=== PATIENT | female | born 1950 | race Caucasian/White ===

== ENCOUNTER 2018-12-23 07:40 | Day surgery (SDC) | payer MEDICARE ==
--- NOTE | 2018-12-16 11:28 | HP ---
AMENDED REPORT NOW INCLUDES DESIGNATED COSIGNER PREOPERATIVE HISTORY AND PHYSICAL: DATE OF ADMISSION: 12/23/18 [facility] ATTENDING PHYSICIAN: Dr. Edie Alegria * (DICTATED BY LOURDES MANE) CHIEF COMPLAINT: Right thumb pain. HISTORY OF PRESENT ILLNESS: The patient is here for followup with Dr. Alegria today for her CMC arthritis. She had previously undergone a left CMC arthroplasty and has done very well with that. She has had over 1 year or thumb pain and the last month has been excruciatingly painful for her. She has elected to proceed with CMC arthroplasty with Dr. Alegria, 12/23/18. She is right hand dominant. PAST MEDICAL HISTORY: Significant for osteoporosis, chronic back pain, hypertension, GERD, high cholesterol, depression, polymyalgia rheumatica, seasonal bronchitis, macular degeneration. PAST SURGICAL HISTORY: Left rotator cuff surgery, left CMC arthroplasty, right long and ring trigger finger releases, bunion surgery on both feet, tubal ligation, tonsillectomy, lumbar decompression, plantar wart surgery both feet, I and D left knee infected prepatellar bursa. MEDICATIONS: 1. Calcium 600 mg twice daily. 2. Vitamin D3 500 units 1 by mouth daily. 3. Amitriptyline 25 mg 3 tablets q.h.s. 4. Lisinopril 40 mg daily. 5. Omeprazole 20 mg daily. 6. Lipitor 80 mg q.h.s. 7. Fluoxetine 40 mg 1 p.o. daily. 8. Prednisone 5 mg 1 tab alternating with half tab p.o. daily. 9. Ventolin inhaler and Symbicort inhaler as needed for bronchitis. 10. Multivitamin daily. 11. Tylenol extra strength 1 to 2 tabs p.o. q.6 hours p.r.n. 12. Cyclobenzaprine 10 mg p.o. q.h.s. 13. Ibuprofen 600 mg 3 times daily as needed. ALLERGIES: PENICILLIN, she does not remember the reaction. SOCIAL HISTORY: The patient lives alone. She quit smoking cigarettes 46 years ago. She denies use of alcohol or illicit drugs. She works at [employer] with clients with a history of traumatic brain injury. PHYSICAL EXAMINATION GENERAL: She is alert and oriented x3, in no acute distress. Pleasant and cooperative. Appropriate mood and affect. VITAL SIGNS: Height 66.50 inches, weight 165. Pulse 100, BP 116/76, temperature 97.2. HEENT: PERRLA. EOMI. LUNGS: Clear to auscultation without wheeze. HEART: Regular rate and rhythm. No murmur auscultated. ABDOMEN: Nontender, nontender. Normoactive bowel sounds x4 quadrants. EXTREMITIES: Upper extremities, the right CMC area is swollen and tender at the CMC joint. She has a positive grind test. She has decreased motion of the thumb secondary to pain. Her circulation and sensation are intact. She has a 2 + radial pulse. IMPRESSION: Advanced CMC arthritis on the right. PLAN: The patient has elected to proceed with right CMC arthroplasty with Dr. Alegria on 12/23/18. Risks and benefits of the procedure have fully been discussed by Dr. Alegria at today's office visit and she elected to proceed. She will follow up in roughly 10 days postoperatively. LOURDES MANE [id number]/[facility] #: [id number] ALEX
[~2018-12-23 07:40] MED LIST: Buffered Lidocaine 1% SYRIN* 1 ML/SYRINGE INTRADERM ONE; Dexamethasone IV* 4 MG/ML 1 ML (4 MG) IV SLOW PU ONE; Lactated Ringers 1000 ML Bag* 1,000 ML IV SCH
[2018-12-23] MEDS ORDERED: Dexamethasone IV* 4 MG/ML 1 ML (4 MG) ONE (07:54)
[2018-12-23] MEDS ORDERED: Clindamycin 900 MG IVPREMIX(* 900 MG/50 ML SDV IV ONE (07:54)
[2018-12-23] MEDS ORDERED: Ondansetron INJ* 2 MG/ML VIAL ONE (08:49)
[2018-12-23] MEDS ORDERED: Midazolam* 1 MG/ML 5 ML VIAL (5 MG) ONE (08:49)
[2018-12-23] MEDS ORDERED: fentaNYL* 50 MCG/ML 2 ML VIAL (100 MCG VIAL) ONE (08:49)
[2018-12-23] MEDS ORDERED: Propofol* 10 MG/ML 20 ML BTL ONE (08:49)
[2018-12-23] MEDS ORDERED: Ketorolac INJ* 30 MG/ML 1 ML VIAL ONE (08:49)
[2018-12-23] MEDS ORDERED: Bupivacaine 0.5% SDV PF* 30ML VIAL ONE (08:52)
[2018-12-23] MEDS ORDERED: Lidocaine 0.5%* 50 ML SDV ONE (08:54)
[2018-12-23] MEDS ORDERED: Sodium Bicarbonate 8.4% VIAL* 10 ML VIAL IV ONE (08:54)
[2018-12-23 10:58] VITALS: BP 122/79
--- NOTE | 2018-12-23 12:08 | OP ---
DATE OF OPERATION: 12/23/18 [facility] DATE OF : 46 SURGEON: Edie Alegria MD. CONTACT CLERK: LOURDES Ko. ANESTHESIA: IV regional. PRE-OP DIAGNOSIS: Right thumb carpometacarpal arthritis. POST-OP DIAGNOSIS: Right thumb carpometacarpal arthritis. OPERATIVE PROCEDURE: Right thumb carpometacarpal arthroplasty. ESTIMATED BLOOD LOSS: Zero. TOURNIQUET TIME: About 40 minutes. INDICATION FOR PROCEDURE: Mariah is a 68-year-old female who has painful arthritis at the base of her right thumb. She has failed conservative treatment and presents now for a right thumb CMC arthroplasty. DESCRIPTION OF PROCEDURE: The patient was brought to the operating room and was given a sedation anesthetic and an IV regional anesthetic with a tourniquet around her right upper arm. The skin of her right upper extremity was prepped and draped in the usual sterile fashion. An S-shaped incision made, centered at the thumb CMC joint. We dissected bluntly through the subcutaneous tissue. Branches of the radial sensory nerve and the radial artery were located and then retracted by the surgical clinical reviewer, Fely Moncada. A distally based U- shaped flap was created at the thumb CMC joint capsule and that was subperiosteally dissected off of the trapezium. Trapezium was then removed in its entirety and piecemeal fashion. The wound was irrigated and the CMC joint capsule was secured to the FCR tendon in the base of the wound. This gave a very nice abduction position to the metacarpal and 30 degrees of MP flexion. The skin edges were reapproximated with 4-0 nylon suture. The wound was dressed with Xeroform, 4x4, Webril, and a thumb spica splint. The patient tolerated the procedure well and was brought to the recovery room in good condition. [id number]/[facility] [place] #: [id number] [facility]
== END 2018-12-23 09:40 | disposition home or self-care (01) ==
LOC: OREAST 07:40
PROVIDERS: ATTEND Orthopaedic Surgery
DX: M18.11 Unilateral primary osteoarthritis of first carpometacarpal joint, right hand (principal); M81.0 Age-related osteoporosis without current pathological fracture; I10 Essential (primary) hypertension; K21.9 Gastro-esophageal reflux disease without esophagitis; E78.00 Pure hypercholesterolemia, unspecified; M35.3 Polymyalgia rheumatica; F32.9 Major depressive disorder, single episode, unspecified
CPT/HCPCS: 88304; 88311; J1100; J1885; J2250; J2405; J2704; J3010; J3490

== ENCOUNTER 2023-10-14 05:42 | Inpatient (IN) ==
[~2023-10-14 05:42] MED LIST changes: -Buffered Lidocaine 1% SYRIN* 1 ML/SYRINGE INTRADERM ONE; -Dexamethasone IV* 4 MG/ML 1 ML (4 MG) IV SLOW PU ONE; -Lactated Ringers 1000 ML Bag* 1,000 ML IV SCH; +NS 0.45% 1000 ml BAG 1,000 ML IV SCH; +Naloxone 0.4 mg VIAL 0.4 mg/ml 1 ml VIAL IV PRN; +Ondansetron 4 mg VIAL 2 MG/ML 2 ml VIAL IV PRN; +fentaNYL 100 mcg/2 ml 50 MCG/ML VIAL IV PRN
[2023-10-14] MEDS ORDERED: Famotidine IV 10 MG/ML 2 ml VIAL (20 mg) ONE (06:17)
[2023-10-14] MEDS ORDERED: Clindamycin 900 MG/50 **NS BAG 900 MG/50 ML BAG ONE (06:17)
[2023-10-14 06:28] LABS: Rapid COVID-19 Molecular Undetected (Undetected)
[2023-10-14] MEDS ORDERED: Midazolam 5 mg/5 ml VIAL 1 mg/ml 5 ml VIAL (5 mg) ONE (06:41)
[2023-10-14] MEDS ORDERED: fentaNYL 100 mcg/2 ml 50 MCG/ML VIAL ONE ×3 (06:41→11:22)
[2023-10-14] MEDS ORDERED: ROPIVACAINE 5 MG/ML 30 ML BTL (0.5%) ONE (06:42)
[2023-10-14] MEDS: Famotidine IV 10 MG/ML 2 ml VIAL (20 mg) IV ONE (06:43)
[2023-10-14] MEDS: Lactated Ringers 1000 ml BAG 1,000 ML IV SCH ×2 (06:43→14:25)
[2023-10-14] MEDS: Levalbuterol 0.63MG/3ML NEB UNIT OF USE INH ONE (06:44)
[2023-10-14] MEDS ORDERED: Levalbuterol 0.63MG/3ML NEB UNIT OF USE INH ONE (06:46)
[2023-10-14] MEDS ORDERED: Propofol 10 MG/ML 20 ML BTL ONE (07:06)
[2023-10-14] MEDS ORDERED: Ondansetron 4 mg VIAL 2 MG/ML 2 ml VIAL ONE (07:06)
[2023-10-14] MEDS ORDERED: Lidocaine 2% PF 5 ML VIAL ONE (07:07)
[2023-10-14] MEDS ORDERED: Midazolam 2 mg/2 ml VIAL 1 mg/ml 2 ml VIAL (2 mg) ONE (07:10)
[2023-10-14] MEDS ORDERED: Rocuronium 50 mg VIAL 10 mg/ml 5 ml VIAL (50 mg) ONE ×2 (07:11→09:08)
[2023-10-14] MEDS ORDERED: Bupivacaine 0.5% 50 ML MDV VIAL ONE (07:19)
[2023-10-14] MEDS ORDERED: Vancomycin 1,000 MG VIAL ONE (07:19)
[2023-10-14] MEDS ORDERED: HYDROmorphone 0.5 MG/0.5 ML SYRINGE ONE ×2 (08:01→09:32)
[2023-10-14] MEDS ORDERED: Dexamethasone IV 4 MG/ML VIAL 1 ml VIAL ONE (08:09)
[2023-10-14] MEDS ORDERED: Tranexamic Acid 1,000 MG/10 ML SDV ONE (08:14)
[2023-10-14] MEDS ORDERED: Ondansetron 4 mg VIAL 2 MG/ML 2 ml VIAL IV PRN (08:55)
[2023-10-14] MEDS ORDERED: Ondansetron ODT 4 mg TAB 4 MG TAB PO PRN (08:55)
[2023-10-14] MEDS ORDERED: Magnesium Hydroxide LIQ 30 ML UDC PO PRN (08:55)
[2023-10-14] MEDS ORDERED: Lactulose 30 ml UDC PO PRN (08:55)
[2023-10-14] MEDS ORDERED: Morphine 2 MG/ML SYRINGE IV PRN (08:55)
[2023-10-14] MEDS: Buffered Lidocaine 1% SYRIN 1 ml INTRADERM ONE (13:32)
[2023-10-14] MEDS: Acetaminophen IV 1 GM/100ML 1,000 MG/100 ML BAG IV ONE (13:32)
[2023-10-14] MEDS: Vitamin THERAPEUTIC TAB PO SCH (14:27)
[2023-10-14] MEDS: Magnesium Hydroxide LIQ 30 ML UDC PO SCH (14:42)
[2023-10-14] MEDS ORDERED: Albuterol HFA INHALER 8 gm MDI INH PRN (15:53)
[2023-10-14] MEDS: Clindamycin 600 MG/D5W BAG 600 MG/50 ML BAG IV SCH (16:05)
[2023-10-15 06:04] LABS: Hematocrit 23.2 % (35-45); Hemoglobin 7.9 g/dL (11.5-14.3); Mean Platelet Volume 7.2 fL (7.5-11.2); Platelet Count 211 10^3/uL (150-450)
[2023-10-15 06:31] LABS: Creatinine, Serum 0.62 mg/dL (0.51-0.95); Potassium 3.7 mmol/L (3.5-5.0); eGFR CKD-EPI 92.8 (>60)
[2023-10-15] MEDS: Mometasone/Formoter 100/5 MDI INH SCH (08:23)
[2023-10-15 10:05] VITALS: BP 112/69
== END 2023-10-15 15:00 | disposition home or self-care (01) | DRG 483 ==
LOC: AA 05:42 → INTOOBSV 05:42 → SSU 08:56 → UNDODISOB 15:56
PROVIDERS: ADMIT Orthopaedic Surgery; ATTEND Orthopaedic Surgery